=== PATIENT | male | born 1995 | race Two or more races ===

== ENCOUNTER 2022-11-20 23:55 | Emergency (ER) | payer OTHER ==
[~2022-11-20] VITALS: Ht 167.6 cm; Wt 91.6 kg
--- NOTE | 2022-11-21 00:23 | NUR ---
[facility] FOR OTB, C/O CP NON RADIATING SINCE YESTERDAY 3PM, HX OF PE. ON WARFARIN, NON COMPLIANT. PT A/OX4. TOLERATING R/A WEL WITH NO RESP DISTRESS. CONNECTED PT TO POX AND MONITOR. SAFETY MEASURES IN PLACE.
[2022-11-21] MEDS ORDERED: ASPIRIN 325 MG TABLET PO ONE (00:30)
[2022-11-21] MEDS ORDERED: ASPIRIN 325 MG TABLET ONE (00:37)
[2022-11-21] MEDS ORDERED: IOHEXOL-350 100 ML VIAL IV ONE (00:48)
[2022-11-21] MEDS ORDERED: IV NS 0.9% 250 ML IV ONE (00:48)
--- NOTE | 2022-11-21 00:50 | NUR ---
LAC #20G S/L BLOOD COLLECTED AND SENT TO LAB
--- NOTE | 2022-11-21 01:02 | NUR ---
PT TAKEN TO CT VIA [facility]
[2022-11-21 01:08] LABS: BASOPHILS # (AUTO) 0.1 K/uL (0.0-0.2); BASOPHILS % (AUTO) 1.2 % (0.0-2.0); EOSINOPHILS % (AUTO) 0.6 % (0.0-6.0); HEMATOCRIT 40 % (39-51); HEMOGLOBIN 13.4 g/dL (13.5-17.5); LYMPHOCYTES # (AUTO) 1.5 K/uL (0.8-4.8); LYMPHOCYTES % (AUTO) 23.5 % (20.0-44.0); MEAN CORPUSCULAR HGB CONC 34 g/dl (31.0-36.0); MEAN CORPUSCULAR VOLUME 92 fL (80-96); MONOCYTES # (AUTO) 0.3 K/uL (0.1-1.30); MONOCYTES % (AUTO) 5.4 % (2.0-12.0); NEUTROPHILS # (AUTO) 4.5 K/uL (1.8-8.9); NEUTROPHILS % (AUTO) 69.3 % (43.0-81.0); PLATELET COUNT (AUTO) 313 K/uL (150-450); RED BLOOD CELL COUNT(AUTO) 4.35 MIL/uL (4.5-6.0); WHITE BLOOD COUNT (AUTO) 6.5 K/uL (4.3-11.0)
--- NOTE | 2022-11-21 01:10 | NUR ---
PT RETURNED TO ER BED [address]
[2022-11-21 01:34] LABS: ALANINE AMINOTRANSFERASE 30 U/L (12-78); ALBUMIN 4.2 g/dL (3.4-5.0); ALKALINE PHOSPHATASE 79 U/L (46-116); ASPARTATE AMINOTRANSFERASE 24 U/L (15-37); BILIRUBIN,DIRECT 0.1 mg/dL (0.0-0.2); BILIRUBIN,TOTAL 0.6 mg/dL (0.2-1.0); CALCIUM, SERUM 9.1 mg/dL (8.5-10.1); CARBON DIOXIDE 25 mmol/L (21-32); CHLORIDE 104 mmol/L (98-107); CREATININE 1.4 mg/dL (0.6-1.3); GLUCOSE 91 mg/dL (74-106); POTASSIUM 4.1 mmol/L (3.5-5.1); SODIUM SERUM 139 mmol/L (136-145); TOTAL PROTEIN, SERUM 7.7 g/dL (6.4-8.2); UREA NITROGEN, BLOOD 16 mg/dL (7-18)
--- NOTE | 2022-11-21 02:52 | NUR ---
PHLEBTOMIST AT PT'S BEDSIDE
--- NOTE | 2022-11-21 03:55 | NUR ---
Patient discharged to [employer] [employer] custody in stable condition. Written and verbal after care instructions given. Patient verbalizes understanding of instruction. IV removed. Catheter intact and site benign. Pressure and 4x4 applied to site. No bleeding noted.
[2022-11-21 03:56] VITALS: BP 140/85
== END 2022-11-21 03:55 ==
LOC: ER 23:57
DX: R07.9 Chest pain, unspecified (principal)
CPT/HCPCS: 99284; 71275; 93005; 85025; 80048; 80076; 36415; 84484 ×2; 85730; J7050; Q9967